=== PATIENT | female | born 1980 | race Caucasian/White ===

== ENCOUNTER 2022-08-07 01:42 | Emergency (ER) | payer SELFPAY ==
[~2022-08-07] VITALS: Ht 162.6 cm; Wt 113.4 kg
--- NOTE | 2022-08-07 02:00 | NUR ---
BIBS FOR C/O RLQ ABD PAIN . REFFERED BY AN URGENT CARE TO R/O RUPTURED APPENDIX. PT A/OX4. TOLERATING R/A WELL WITH NO RESP DISTRESS. CONNECTED PT TO POX AND MONITOR. SAFETY MEASURES IN PLACE.
[2022-08-07] MEDS ORDERED: ONDANSETRON HCL/PF 4 MG/2 ML VIAL ONE (02:11)
[2022-08-07] MEDS ORDERED: MORPHINE SULFATE INJ 4 MG/ML DISP.SYRIN ONE (02:12)
[2022-08-07] MEDS ORDERED: ONDANSETRON HCL/PF 4 MG/2 ML VIAL IVP ONE (02:30)
[2022-08-07] MEDS ORDERED: MORPHINE SULFATE INJ 2 MG/ML DISP.SYRIN IV ONE (02:30)
[2022-08-07] MEDS ORDERED: CT SWABBABLE VALVE TRANS SET 1 EA INFUS.SET MC ONE (02:31)
[2022-08-07] MEDS ORDERED: IOHEXOL 50 ML IV ONE (02:31)
[2022-08-07] MEDS ORDERED: IOHEXOL-300 100 ML VIAL IV ONE (02:31)
[2022-08-07] MEDS ORDERED: IV NS 0.9% 250 ML IV ONE (02:31)
[2022-08-07] MEDS ORDERED: ONDANSETRON 4 MG TAB.RAPDIS SL ONE (03:00)
[2022-08-07] MEDS ORDERED: ONDANSETRON 4 MG TAB.RAPDIS ONE (03:00)
[2022-08-07] MEDS ORDERED: MORPHINE SULFATE INJ 2 MG/ML DISP.SYRIN IM ONE (03:00)
--- NOTE | 2022-08-07 03:05 | NUR ---
PT TAKEN TO CT VIA JERR[facility]
--- NOTE | 2022-08-07 03:17 | NUR ---
PT RETURNED TO ER BED [address]
[2022-08-07 04:14] LABS: BASOPHILS # (AUTO) 0.1 K/uL (0.0-0.2); BASOPHILS % (AUTO) 0.8 % (0.0-2.0); EOSINOPHILS % (AUTO) 1.5 % (0.0-6.0); HEMATOCRIT 41 % (33-45); HEMOGLOBIN 12.8 g/dL (11.5-14.8); LYMPHOCYTES # (AUTO) 2.4 K/uL (0.8-4.8); LYMPHOCYTES % (AUTO) 23.5 % (20.0-44.0); MEAN CORPUSCULAR HGB CONC 31 g/dl (31.0-36.0); MEAN CORPUSCULAR VOLUME 88 fL (82-100); MONOCYTES # (AUTO) 0.6 K/uL (0.1-1.30); MONOCYTES % (AUTO) 5.7 % (2.0-12.0); NEUTROPHILS # (AUTO) 6.9 K/uL (1.8-8.9); NEUTROPHILS % (AUTO) 68.5 % (43.0-81.0); PLATELET COUNT (AUTO) 376 K/uL (150-450); RED BLOOD CELL COUNT(AUTO) 4.63 MIL/uL (4.0-5.2); WHITE BLOOD COUNT (AUTO) 10.1 K/uL (4.3-11.0)
[2022-08-07 04:22] LABS: CREATININE 0.8 mg/dL (0.6-1.3); POTASSIUM 4.9 mmol/L (3.5-5.1)
[2022-08-07] MEDS ORDERED: DICY10CA37 PO (04:49)
--- NOTE | 2022-08-07 05:10 | NUR ---
Patient discharged to home in stable condition. RX Written and verbal after care instructions given. Patient verbalizes understanding of instruction. PT ambulatory with a steady gait
[2022-08-07 05:11] VITALS: BP 131/71
== END 2022-08-07 05:12 | disposition home or self-care (01) ==
LOC: ER 01:46
DX: R10.31 Right lower quadrant pain (principal); R11.2 Nausea with vomiting, unspecified; Z88.8 Allergy status to other drugs, medicaments and biological substances
CPT/HCPCS: 99285; 74176; 96372; 85025; 80048; 36415; J2270; J7050; Q9967; Q0162; J2405